=== PATIENT | female | born 1990 | race Caucasian/White ===

== ENCOUNTER → 2017-06-06 | Outpatient (CLI) | payer MEDICAID | LOC: FIMAGING 11:01 | PROVIDERS: ATTEND Midwife | DX: O99.321 Drug use complicating pregnancy, first trimester (principal); O99.331 Smoking (tobacco) complicating pregnancy, first trimester; Z3A.12 12 weeks gestation of pregnancy; F17.200 Nicotine dependence, unspecified, uncomplicated; F11.11 Opioid abuse, in remission; Z79.891 Long term (current) use of opiate analgesic ==

== ENCOUNTER → 2017-08-09 | Outpatient (CLI) | payer MEDICAID | LOC: FIMAGING 10:17 | PROVIDERS: ATTEND Midwife | DX: O99.322 Drug use complicating pregnancy, second trimester (principal); O99.332 Smoking (tobacco) complicating pregnancy, second trimester; O36.5120 Maternal care for known or suspected placental insufficiency, second trimester, not applicable or unspecified; F17.200 Nicotine dependence, unspecified, uncomplicated; O99.342 Other mental disorders complicating pregnancy, second trimester; F11.11 Opioid abuse, in remission; F41.9 Anxiety disorder, unspecified; M54.9 Dorsalgia, unspecified; Z79.891 Long term (current) use of opiate analgesic; Z82.79 Family history of other congenital malformations, deformations and chromosomal abnormalities; Z3A.21 21 weeks gestation of pregnancy ==

== ENCOUNTER → 2017-09-08 | Outpatient (CLI) | payer MEDICAID | LOC: FIMAGING 11:25 | PROVIDERS: ATTEND Midwife | DX: O09.292 Supervision of pregnancy with other poor reproductive or obstetric history, second trimester (principal); O99.322 Drug use complicating pregnancy, second trimester; O99.332 Smoking (tobacco) complicating pregnancy, second trimester; Z3A.25 25 weeks gestation of pregnancy ==

== ENCOUNTER → 2017-11-21 | Outpatient (CLI) | payer MEDICAID | LOC: FIMAGING 12:06 | PROVIDERS: ATTEND Midwife | DX: O99.323 Drug use complicating pregnancy, third trimester (principal); O99.333 Smoking (tobacco) complicating pregnancy, third trimester; O26.891 Other specified pregnancy related conditions, first trimester; O24.419 Gestational diabetes mellitus in pregnancy, unspecified control; F17.200 Nicotine dependence, unspecified, uncomplicated; F11.20 Opioid dependence, uncomplicated; Z3A.36 36 weeks gestation of pregnancy ==